=== PATIENT | female | born 2000 | race Hispanic/Latino ===

== ENCOUNTER 2020-07-28 20:03 | Emergency (ER) | payer OTHER ==
[~2020-07-28] VITALS: Ht 160 cm; Wt 59.1 kg
[2020-07-28] MEDS ORDERED: PHENAZOPYRIDINE 100 MG TAB PO ONE (20:45)
[2020-07-28] MEDS ORDERED: CIPROFLOXACIN 500MG TABLET PO ONE (20:45)
[2020-07-28] MEDS ORDERED: PYRI1TAB5 PO (20:45)
[2020-07-28] MEDS ORDERED: CIPR-249 PO (20:45)
[2020-07-28 20:56] VITALS: BP 118/56
== END 2020-07-28 20:57 | disposition home or self-care (01) ==
LOC: M ED 20:03
DX: N30.00 Acute cystitis without hematuria (principal)